=== PATIENT | female | born 2000 | race Caucasian/White ===

== ENCOUNTER → 2021-08-28 | Emergency (ER) | payer BC ==
[~2021-08-28] VITALS: Ht 167.6 cm; Wt 59.1 kg
[2021-08-28 21:28] VITALS: TEMP 98.6
[2021-08-28 22:09] LABS: STREP SCREEN NEGATIVE
[2021-08-28 22:34] VITALS: BP 121/80; PULSE 92
== END ==
LOC: COL.ER 21:21
PROVIDERS: Nurse Practitioner Primary Care
DX: J06.9 Acute upper respiratory infection, unspecified (principal)